=== PATIENT | male | born 1965 | race Caucasian/White ===

== ENCOUNTER 2017-01-23 12:46 | Emergency (ER) | payer MEDICARE, OTHER ==
[~2017-01-23] VITALS: Ht 172.7 cm; Wt 63.1 kg
[~2017-01-23 12:46] MED LIST: FENT1PAT9 TOP; HYDR-3881 PO; LEVO25TA2 PO; MOOD STABILIZER PO; OXYC7.5T PO; RANI300T4 PO
--- OUTSIDE RECORDS SUMMARY | 2017-01-23 12:50 | XMS REPORT | Summary of Care ---
Author Author Andreas Torres M.D. Organization Unknown Address [address] [place] [phone] Phone Unavailable Care Team Providers Care Jet Blade Polisher Name Role Phone Melissa Pacheco, Stacy Unavailable Unavailable Gamaliel Hanson PP Unavailable Unavailable Unavailable Functional Status Functional Status Health Issues Name Dates Details Functional status health issues are not documented Status: Cognitive Status Health Issues Name Dates Details Cognitive status health issues are not documented Status: Problems Name Dates Details Dry mouth (527.7, R68.2) Status: Active Shortness of breath (786.05, R06.02) Status: Active Abnormal weight loss (783.21, R63.4) Status: Active Nicotine dependence (305.1, F17.200) Status: Active Dysphagia (787.20, R13.10) Status: Active Malignant neoplasm of head, face, or neck (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 Quantity: 30 Refills: 6 Andreas Torres M.D. Started 20-Oct-2015 ActiveRanitidine HCl - 150 MG Oral Tablet TAKE 1 TABLET AT BEDTIME. Quantity: 30 Refills: 3 Andreas Torres M.D. Started 20-Oct-2015 Active Allergies and Adverse Reactions Name Dates Details No Known Drug Allergies Status: Active Past Medical History Name Dates Details History of malignant neoplasm (V10.90, Z85.9) Status: Resolved Procedures Procedure Dates Details Procedures not documented Immunization Name Dates Details Immunizations not documented Family History Mother Name Dates Details Family history of diabetes mellitus (V18.0, Z83.3) Status: Active Father Name Dates Details Family history of CAD (coronary artery disease) (414.00, I25.10) Status: Active Family history of lung cancer (V16.1, Z80.1) Status: Active Social History Name Dates Details Smoking StatusUnknown if ever smokedCurrent every day smoker Vital Signs Date Test Result Details 20-Oct-2015 13:52 Temperature 97.4 f Status: Heart Rate 72 /min Status: Weight 133 lb Status: Results Date Description Value Details Results not documented Plan of Care Planned Observations Name Dates Details Planned Goals not documented Goal Instructions Instructions not documented Encounters Appointment; Andreas Torres Encounter Diagnosis: Problem not documented On 20-Oct-2015 13:30 Appointment; Jonas Melton Encounter Diagnosis: Problem not documented On 28-Nov-2013 13:00
[2017-01-23] MEDS ORDERED: PROMETHAZINE 25 MG/ML (PHENERGAN) 1 ML VIAL IM ONE (13:35)
[2017-01-23] MEDS ORDERED: HYDROmorphone 1 MG/ML (DILAUDID) SYRINGE IM ONE (13:35)
[2017-01-23] MEDS ORDERED: HYDR-3811 PO (13:39)
[2017-01-23 13:59] VITALS: BP 102/78
== END 2017-01-23 14:02 | disposition home or self-care (01) ==
LOC: ED 12:47
DX: M54.5 Low back pain (principal)
CPT/HCPCS: 96372; 99282; J1170; J2550; 99283

== ENCOUNTER 2017-01-26 15:51 | Emergency (ER) | payer MEDICARE ==
[~2017-01-26] VITALS: Ht 180.3 cm; Wt 65.9 kg
[~2017-01-26 15:51] MED LIST changes: +HYDR-3811 PO
[2017-01-26 16:13] VITALS: BP 122/77
--- NOTE | 2017-01-26 16:31 | NUR ---
Patient reports during medical history: "Quit asking so many fucking questions and just give me what you gave me last time."
[2017-01-26] MEDS ORDERED: HYDROmorphone 2 MG/ML (DILAUDID) 1 ML SYRINGE IM ONE (16:45)
[2017-01-26] MEDS ORDERED: PROMETHAZINE 25 MG/ML (PHENERGAN) 1 ML VIAL IM ONE (16:45)
[2017-01-26] MEDS ORDERED: HYDR-3708 PO (16:46)
== END 2017-01-26 17:00 | disposition home or self-care (01) ==
LOC: ED 15:54
DX: M54.5 Low back pain (principal)
CPT/HCPCS: 96372; 99282; 99283

== ENCOUNTER 2017-01-29 14:22 | Emergency (ER) | payer MEDICARE ==
[~2017-01-29] VITALS: Ht 180.3 cm; Wt 68.4 kg
[~2017-01-29 14:22] MED LIST changes: +HYDR-3708 PO
--- OUTSIDE RECORDS SUMMARY | 2017-01-29 14:26 | XMS REPORT | Continuity of Care Document ---
Author Author [facility] Address Unknown Phone Unavailable Care Team Providers Care Welder Fitter Arc Name Role Phone Gamaliel Sellers MD PCP [phone] Insurance Providers Payer Name Policy Number Subscriber Name Relationship Medicare A And B [id number] Talon Varner 18 Self / Same As Patient Advance Directives Directive Response Recorded Date/Time Advanced Directives No 01/26/17 4:13pm Chief Complaint and Reason for Visit Chief Complaint Pain Reason for Visit Low back pain Problems Active Problems Medical Problem Onset Date Status Gastroenteritis Unknown Acute Low back pain 02/02/2013 Acute Low back pain Unknown Acute Medications Current Home Medications Medication Dose Units Route Directions Days/Qty Instructions Start Date Oxycodone Hcl 7.5 Mg 2 Tab ORAL Q4-6 02/02/13 Levothyroxine Sodium 25 Mcg 1 Tab ORAL Daily 02/02/13 Ranitidine Hcl 300 Mg 1 ORAL Daily for Acid Reflux 30 10/13/15 Acetaminophen/Hydrocodone Bitart 1 Ea 1 Tab ORAL Every 4HRS as needed for Pain 20 01/23/17 Hydrocodone Bit/Acetaminophen 1 Each 1 Each ORAL Every 4HRS for Pain 20 01/26/17 Past Home Medications Medication Directions Ordered Status Hydrocodone Bit/Acetaminophen 1 Ea Tablet, 1 - 2 Tab Oral Q4-6 02/02/13 Discontinued Fentanyl 1 Each Patch.td72, 1 Patch Topical Q72hr 02/02/13 Discontinued [Mood Stabilizer] Tab, 1 Tab Oral Daily 04/21/13 Discontinued Social History Query Response Start Date Stop Date Smoking Status Heavy tobacco smoker 10+ Hospital Discharge Instructions No hospital discharge instructions. Plan of Care Discharge Date 01/26/17 5:00pm Disposition 01 HOME OR SELF-CARE Condition at Discharge Stable Instructions/Education Provided Low Back Pain (DC) Prescriptions See Medication Section Referrals Gamaliel Sellers MD - Additional Instructions/Education Heat/cold per comfort Hydrocodone 10/325 every 4 hours as needed for pain Follow up with Dr. Sellers as needed Avoid aggrevating activities Return if symptoms worsen Some of your test results may not be complete prior to your leaving the Emergency Department. The Emergency Department is not authorized to give test results over the phone. Please contact the doctor's office listed in this packet of information for your final results. Follow up with your primary care physician or return to the Emergency Department for worsening or worrisome symptoms. * Emergency Department phone number: [phone], x [phone]* MEDICAL RECORD If you need copies of your X-rays, call [phone]. If you need copies of your medical record, including lab results, a signed authorization for release of records will be required. A telephone call for release of Health Information is not allowed. BILLING Billing can sometimes be confusing and frustrating. To help avoid confusion in the future, please take a moment to acquaint yourself with the billing parties for services. [facility] Emergency Room Services [facility] Physician Services [facility] X-[facility] Patients will receive bills for services from the appropriate provider. If you have any questions about your [facility] bill, our staff will be happy to assist you. Please call [phone], and ask for the billing department. THANK YOU for choosing [facility] as your emergency care provider! Care Plan and Goals ~~Discharge Care Plan~~ Problem: Back pain Goal: Decreased level of pain. Return to usual activities. Instructions: Take medication(s) as directed; follow up with your primary care physician as directed; follow patient home care instructions. Apply ice or heat to site for comfort. Functional Status No functional status results. Allergies, Adverse Reactions, Alerts No known allergies. Immunizations No immunization records. Vital Signs Acute Vital Signs Vital Response Date/Time Temperature (Fahrenheit) 99.4 01/26/2017 4:13pm Pulse 79 bpm 01/26/2017 4:13pm Respirations 16 01/26/2017 4:13pm Height 5 ft 11 in Weight 145 lb Body Mass Index 20.0 kg/m^2 Results No known relevant diagnostic tests, laboratory data and/or discharge summary. Procedures Procedure Status Date Provider(s) THER/PROPH/DIAG INJ SC/IM Completed 01/23/17 EMERGENCY DEPT VISIT Completed 01/23/17 Completed 01/23/17 Completed 01/23/17 Encounters Encounter Location Arrival/Admit Date Discharge/Depart Date Attending Provider Departed Emergency Room [facility] 01/26/17 3:54pm 01/26/17 5:00pm RODY VENEGAS MD Departed Emergency Room [facility] 01/23/17 12:47pm 01/23/17 2:02pm RODY VENEGAS MD Recent Diagnosis
--- NOTE | 2017-01-29 14:30 | NUR ---
Patient remarks: "I don't know why you have to ask me all these questions when I was just here. It is the same as last time. You don't need to do all this." Explained to patient the need for triage vital signs and information. Patient continues to complain.
[2017-01-29] MEDS: DEXAMETHASONE 4 MG/ML (DECADRON) 5ml VIAL IM ONE (14:48)
[2017-01-29] MEDS: HYDROmorphone 2 MG/ML (DILAUDID) 1 ML SYRINGE IM ONE (14:48)
[2017-01-29 15:07] VITALS: BP 140/84
--- NOTE | 2017-01-29 15:08 | NUR ---
dr stephenson called by er
== END 2017-01-29 15:12 | disposition home or self-care (01) ==
LOC: ED 14:23
DX: M54.5 Low back pain (principal)
CPT/HCPCS: 96372; 99282; J1100; J1170

== ENCOUNTER → 2017-02-05 | Emergency (ER) | payer MEDICARE ==
[~2017-02-05] VITALS: Ht 180.3 cm; Wt 63.0 kg
--- OUTSIDE RECORDS SUMMARY | 2017-02-05 10:17 | XMS REPORT | Continuity of Care Document ---
Author Author [facility] Address Unknown Phone Unavailable Care Team Providers Care Organizational Psychologist Name Role Phone Gamaliel Sellers MD PCP [phone] Insurance Providers Payer Name Policy Number Subscriber Name Relationship Medicare A And B [id number] Talon Varner 16 Self / Same As Patient Advance Directives Directive Response Recorded Date/Time Advanced Directives No 01/29/17 2:24pm Chief Complaint and Reason for Visit Chief Complaint Pain Reason for Visit Chronic back pain Problems Active Problems Medical Problem Onset Date Status Chronic back pain Unknown Acute Gastroenteritis Unknown Acute Low back pain 02/02/2013 [...] 4HRS as needed for Pain 20 01/23/17 Past Home Medications Medication Directions Ordered Status Hydrocodone Bit/Acetaminophen 1 Ea Tablet, 1 - 2 Tab Oral Q4-6 02/02/13 Discontinued Fentanyl 1 Each Patch.td72, 1 Patch Topical Q72hr 02/02/13 Discontinued [Mood Stabilizer] Tab, 1 Tab Oral Daily 02/02/13 Discontinued Hydrocodone Bit/Acetaminophen 1 Each Tablet, 1 Each Oral Every 4HRS for Pain 01/26/17 Discontinued Social History Query Response Start Date Stop Date Smoking Status Heavy tobacco smoker 10+ Hospital Discharge Instructions No hospital discharge instructions. Plan of Care Discharge Date 01/29/17 3:12pm Disposition 01 HOME OR SELF-CARE Condition at Discharge Stable Instructions/Education Provided Chronic Pain (DC) Prescriptions See Medication Section Referrals Gamaliel Sellers MD - Additional Instructions/Education Some of your test results may not [...] worrisome symptoms. * Emergency Department phone number: [phone], x [phone]* MEDICAL RECORD If you need copies of your X-rays, call [phone] x [phone]. If you need copies of [...] services. [facility] Emergency Room Services [facility] Physician Services [facility] X-rays [facility] Patients will receive bills for services from the appropriate provider. If you have any questions about your [facility] bill, our staff will be happy to assist you. Please call [phone], and ask for the billing department. THANK YOU for choosing [facility] as your emergency care provider! Care Plan and Goals ~~Discharge Care Plan~~ Problem:chronic pain Goal:decreased pain Instructions:follow up with pcp Functional Status No functional status results. Allergies, Adverse Reactions, Alerts No known allergies. Immunizations No immunization records. Vital Signs Acute Vital Signs Vital Response Date/Time Temperature (Fahrenheit) 98.1 01/29/2017 3:07pm Pulse 67 bpm 01/29/2017 3:07pm Respirations 16 01/29/2017 3:07pm Height 5 ft 11 in Weight 150 lb Body Mass Index 21.0 kg/m^2 Results No known relevant diagnostic tests, laboratory data and/or discharge summary. Procedures Procedure Status Date Provider(s) THER/PROPH/DIAG INJ SC/IM Completed 01/23/17 EMERGENCY DEPT VISIT Completed 01/23/17 Completed 01/23/17 Completed 01/23/17 Encounters Encounter Location Arrival/Admit Date Discharge/Depart Date Attending Provider Departed Emergency Room [facility] 01/29/17 2:23pm 01/29/17 3:12pm MAIN BRAVO MD Departed Emergency Room [facility] 01/26/17 3:54pm 01/26/17 5:00pm RODY VENEGAS MD Departed Emergency Room [facility] 01/23/17 12:47pm 01/23/17 2:02pm RODY VENEGAS MD Recent Diagnosis
[2017-02-05 10:26] VITALS: BP 116/80
--- NOTE | 2017-02-05 10:49 | NUR ---
PT ROUNDED ON & PT CONT TO BE AWARE OF BUSY ED STATUS & THAT MD WILL BE IN SOON HE CAN. ALSO INFORMED PT NURSE WILL BE [facility] & HE ALSO WOULD BE IN SOON HE CAN. PT & FEMALE AT BEDSIDE WATCHING TV & VERBALIZE UNDERSTANDING. CL
--- NOTE | 2017-02-05 11:10 | NUR ---
WHILE PT IN WITH ED MD, PT LOUDLY STARTS SWEARING AT DR BRAVO & STATING THAT "THIS HOSPITAL IS TRYING TO KILL PEOPLE.....THEY WON'T GIVE ANY MEDICATION." PT OPENS CURTAIN & CONT TO SWEAR AT DR BRAVO WHILE MD IS STILL IN THE ROOM THEN WALKS AWAY FROM MD & OUT DOOR. FEMALE FOLLOWS PT. WHEN THIS RN TRIES TO RUN AFTER PT TO ASK IF HE WOULD SIGN AN AMA PAPER, PT STATES "WHY WOULD I, HE DIDN'T GIVE ME ANYTHING" THEN WALKS OUT OF ED DOOR. CL
== END | disposition home or self-care (01) ==
LOC: ED 10:14
DX: M54.5 Low back pain (principal); Z76.5 Malingerer [conscious simulation]
CPT/HCPCS: 99281